=== PATIENT | male | born 1975 | race Caucasian/White ===

== ENCOUNTER 2025-03-23 14:19 | Outpatient (CLI) | payer OTHER, SELFPAY ==
--- NOTE | ~2025-03-23 | CT_ITS ---
EXAMINATION: CT lung screening DATE: 03/23/2025 14:36 INDICATION: Personal history of nicotine dependence TECHNIQUE: Computed tomography (CT) of the chest was performed without intravenous contrast. The dose-length product was 269.32 mGy-cm. Automated exposure control and iterative reconstruction technique were employed. COMPARISON: None FINDINGS: Heart size normal. No thoracic lymphadenopathy. No significant pleural or pericardial effusion. There is emphysema. No endobronchial lesions. No pneumothorax. There is a 2 mm fissural nodule on the left. There is a 2 mm left upper lobe nodule. There is a 3 mm left lower lobe nodule. There is a 2 mm right fissural nodule. No endobronchial lesion. No pneumothorax. Moderate thoracic spondylosis. No focal lytic or blastic lesions. There is dextroscoliosis of the thoracic spine. IMPRESSION: 1. Lung-RADS category 2: Benign appearance or behavior. Continue annual screening with noncontrast low-dose chest CT in 12 months. Reviewed, dictated and finalized at location I. [facility] [employer] IMPRESSION: 1. Lung-RADS category 2: Benign appearance or behavior. Continue annual screeni ng with noncontrast low-dose chest CT in 12 months.
== END 2025-03-23 14:20 | disposition home or self-care (01) ==
LOC: MICIMG 14:20
PROVIDERS: PCP Physician Assistant; Visit Provider Physician Assistant
DX: Z12.2 Encounter for screening for malignant neoplasm of respiratory organs (principal); Z87.891 Personal history of nicotine dependence
CPT/HCPCS: 71271